=== PATIENT | female | born 1960 | race Caucasian/White ===

== ENCOUNTER 2022-12-17 22:04 | Emergency (ER) | payer MEDICARE, SELFPAY ==
[2022-12-17 22:10] VITALS: BP 155/93; PULSE 99; RESP 22; TEMP 35.7; O2SAT 97
--- NOTE | 2022-12-17 22:48 | CRLHL7_ITS ---
For Patients: As a result of the Century Cures Act, medical imaging exams and procedure reports are released immediately into your electronic medical record. You may view this report before your referring provider. If you have questions, please contact your health care provider. INDICATION: Severe headache.. TECHNIQUE: CT head without contrast. COMPARISON: None. FINDINGS: CSF spaces: Mild prominence of the lateral ventricles and 3rd ventricle. Brain parenchyma and extra-axial spaces: The carmona-white differentiation is normal. No sign of mass, hemorrhage, or midline shift. No extra-axial fluid collection. Skull base and calvarium: Small right sphenoid sinus air-fluid level. The mastoid air cells are clear. The visualized orbits are grossly unremarkable. No skull fractures. Degenerative changes of the temporomandibular joints. IMPRESSION: No acute intracranial hemorrhage, mass effect, or midline shift. Mild prominence of the lateral ventricles and 3rd ventricle. This is of uncertain chronicity. If there is concern for developing hydrocephalus, recommend MRI. No evidence for transependymal CSF flow. Small right sphenoid sinus air-fluid level. Recommend correlation for symptoms of acute sinusitis. Please note that all CT scans at this facility use dose modulation, iterative reconstruction, and/or weight-based dosing when appropriate to reduce radiation dose to as low as reasonably achievable. Dictated by Travis Motley MD @ 12/18/2022 12:05:11 AM (Electronically Signed)
[2022-12-17 23:59] VITALS: BP 141/80; PULSE 65; RESP 18; O2SAT 96
--- NOTE | 2022-12-19 02:53 | ED.HA ---
HPI - Headache General Chief Complaint: Headache/Migraine Stated Complaint: High BP, Headache Time Seen by Provider: 12/17/22 22:32 History of Present Illness HPI Narrative: 62-year-old woman presenting to the emergency department clearly stressed and upset about degree of headache she had experienced earlier today. Two to history of neuropathy had not slept well last night. Was still up at 5:00 a.m.. Had abrupt onset of frontal headache that she demonstrate circling around her face somehow. Very intense. Ultimately was able to fall asleep waking around 7 to 's concern. Admonished her that she should have contacted/alerted him and been evaluated if she would experience something like that again. She mentions that has had higher blood pressures lately apparently in triage, I ask a number of times during our interview and this is somewhat dismissed. 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 Having gone through most of the day now comfortable with minimal discomfort at this point. Was recommended then ultimately during call in to triage who told her that she needs to present immediately to the emergency department. This has frightened her good deal. She is in tears discussing this. Prior to this was not experiencing facial pain pressure in particular. No weakness or new neuropathy/paresthesia. Takes gabapentin higher dosed at night for neuropathy. Related Data Home Medications Medication Instructions Recorded Confirmed amlodipine 10 mg tablet 10 mg PO DAILY 12/17/22 12/17/22 dextroamphetamine-amphetamine 10 1 tab PO DAILY 12/17/22 12/17/22 mg tablet duloxetine 30 mg capsule,delayed 90 mg PO QPM 12/17/22 12/17/22 release empagliflozin 10 mg tablet 10 mg PO DAILY 12/17/22 12/17/22 (Jardiance) famotidine 20 mg tablet 20 mg PO BID 12/17/22 12/17/22 fluticasone propionate 50 1 spray intranasal BID 12/17/22 12/17/22 mcg/actuation nasal spray,suspension gabapentin 400 mg capsule 400 mg PO 12/17/22 insulin glargine 100 unit/mL (3 14 unit subcut QPM 12/17/22 12/17/22 mL) subcutaneous pen (Lantus Solostar U-100 Insulin) losartan 25 mg tablet 25 mg PO DAILY 12/17/22 12/17/22 metformin 500 mg tablet 500 mg PO BID 12/17/22 12/17/22 modafinil 200 mg tablet 400 mg PO QAM PRN 12/17/22 12/17/22 Allergies Allergy/AdvReac Type Severity Reaction Status Date / Time doxycycline Allergy Mild Verified 12/17/22 22:23 losartan Allergy Mild Verified 12/17/22 22:23 Penicillins Allergy Mild Rash Verified 12/17/22 22:23 lisinopril AdvReac Mild Cough Verified 12/17/22 22:23 morphine AdvReac Mild Nausea Verified 12/17/22 22:23 Review of Systems Status of ROS: Reports: 6 or more systems reviewed and unremarkable except as noted in History and below [facility] Social History Smoking Status: Never smoker Do you use any of these nicotine containing products: None Second hand tobacco smoke exposure: No How often do you have a drink containing alcohol: never AUDIT-C Alcohol total score: 0 Non-prescribed substance use: denies use Exam Narrative: Exam Narrative: Pleasant. NAD. As noted tearful. Anxious. Breathing easily. Cranial nerves 2-12 intact. Head is atraumatic. Oropharynx is moist and unremarkable. No facial swelling erythema or tenderness. Neck is supple nontender. Lungs appear to be clear. Heart is in an elevated rate with normal rhythm. She is moving all extremities without difficulty. Well perfused. Const: Documenting provider has reviewed patient's vital signs: yes Course Vital Signs Vital signs: Initial Vital Signs Temperature 96.3 F L 12/17/22 22:10 Temperature Source Temporal Artery Scan 12/17/22 22:10 Pulse Rate 99 12/17/22 22:10 Pulse Rhythm 12/17/22 22:10 Pulse Strength 3+ Normal 12/17/22 22:10 Respiratory Rate 22 12/17/22 22:10 Blood Pressure 155/93 H 12/17/22 22:10 Blood Pressure Mean 113 12/17/22 22:10 Blood Pressure Position Sitting 12/17/22 22:10 Pulse Oximetry 97 12/17/22 22:10 Oxygen Delivery Method 12/17/22 22:10 Vital Signs Temperature 96.3 F L 12/17/22 22:10 Pulse Rate 99 12/17/22 22:10 Respiratory Rate 22 12/17/22 22:10 Blood Pressure 155/93 H 12/17/22 22:10 Pulse Oximetry 97 12/17/22 22:10 Oxygen Delivery Method 12/17/22 22:10 Temperature 96.3 F L 12/17/22 22:10 Pulse Rate 65 12/17/22 23:59 Respiratory Rate 18 12/17/22 23:59 Blood Pressure 141/80 H 12/17/22 23:59 Pulse Oximetry 96 12/17/22 23:59 Oxygen Delivery Method 12/17/22 23:59 MDM - Headache MDM Narrative Medical decision making narrative: Blood pressure is indeed mildly elevated here and if this is regular trend would require further treatment. Is rather asymptomatic at this point. This was transient facial pain/headache seems to have faded. Certainly could have been an aneurysmal leak perhaps at worst. I do not appreciate any stroke/ischemic cerebrovascular symptoms here. Possibly sinus related? I think at this point Suzanne is concerned enough that imaging is reasonable looking for any evidence frankly of head bleed. I do not think need to do any labs at this point. Noncontrast head CT reviewed by me does seem to show some prominent ventricles. I do not see any active bleeding. Radiology over-read IMPRESSION: No acute intracranial hemorrhage, mass effect, or midline shift. Mild prominence of the lateral ventricles and 3rd ventricle. This is of uncertain chronicity. If there is concern for developing hydrocephalus, recommend MRI. No evidence for transependymal CSF flow. Small right sphenoid sinus air-fluid level. Recommend correlation for symptoms of acute sinusitis. As noted does not have persistent pain in the face. This time I would not treat these findings. Suzanne confirms that has a history of somewhat prominent ventricles. Reviewing today and these images Suzanne appears relieved. See patient discharge plan Discharge Plan Discharge Clinical Impression: Headache Patient Disposition: Home w/ Parent or Adult Condition: Improved Additional Instructions: I think this was a lot of stress for you today. It does not appear that you had a stroke. Your blood pressure has improved. The only major thing we found in your head was some fullness of the ventricles of your brain, which you're telling me is nothing new. I hope you can sleep well tonight. Prescriptions: No Action amlodipine 10 mg tablet 10 mg PO DAILY metformin 500 mg tablet 500 mg PO BID dextroamphetamine-amphetamine 10 mg tablet 1 tab PO DAILY gabapentin 400 mg capsule 400 mg PO famotidine 20 mg tablet 20 mg PO BID modafinil 200 mg tablet 400 mg PO QAM PRN losartan 25 mg tablet 25 mg PO DAILY fluticasone propionate 50 mcg/actuation spray,suspension 1 spray INTRANASAL BID duloxetine 30 mg capsule,delayed release(DR/EC) 90 mg PO QPM insulin glargine [Lantus Solostar U-100 Insulin] 100 unit/mL (3 mL) insulin pen 14 unit subcut QPM Jardiance 10 mg tablet 10 mg PO DAILY Follow Up/Referrals: Provider,Not a Local [Primary Care Provider] - Stand Alone Forms: [facility] Info Instructions
== END 2022-12-18 00:57 | disposition home or self-care (01) ==
PROVIDERS: Emergency Provider Family Medicine
DX: R51.9 Headache, unspecified (principal)
CPT/HCPCS: 70450; 99284

== ENCOUNTER 2023-01-29 13:45 | Outpatient (CLI) | payer MEDICARE, SELFPAY ==
--- NOTE | 2023-01-29 14:00 | CRLHL7_ITS ---
For Patients: As a result of the Century Cures Act, medical imaging exams and procedure reports are released immediately into your electronic medical record. You may view this report before your referring provider. If you have questions, please contact your health care provider. 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 98 cc Isovue 370 intravenous contrast. Please note that all CT scans at this facility use dose modulation, iterative reconstruction, and/or weight-based dosing when appropriate to reduce radiation dose to as low as reasonably achievable. Comparison: 03/31/2020 Findings: Mild dependent atelectasis noted in both lower lobes. There is no free intraperitoneal air. Postoperative changes of bilateral mastectomy. Stable 1 cm cyst within the anterior liver. No suspicious intrahepatic lesion. The spleen is normal. Similar appearance of the adrenal glands. Stable simple cyst lower pole left kidney. Right kidney normal. No hydronephrosis. Pancreas normal. Gallbladder absent. Duodenal diverticulum again noted. No hiatal hernia. Bladder unremarkable. Uterus absent. Colonic diverticulosis. No diverticulitis or free fluid. No abscess or obstruction. Small bowel unremarkable. No abdominal wall hernia. No adnexal mass. No adenopathy. Impression: Colonic diverticulosis without diverticulitis. No bowel obstruction or inflammatory change. No evidence of metastatic disease. Please note that all CT scans at this facility use dose modulation, iterative reconstruction, and/or weight-based dosing when appropriate to reduce radiation dose to as low as reasonably achievable. Dictated by Noe Izaguirre MD @ 01/30/2023 10:34:58 AM (Electronically Signed)
[2023-01-29 14:39] LABS: Creatinine* 1.5 mg/dL (0.5-1.5); Estimated Glomerular Filt Rate 39 ml/min
== END 2023-01-29 13:46 | disposition home or self-care (01) ==
PROVIDERS: PCP Family Medicine; Visit Provider Internal Medicine Hematology & Oncology
DX: C50.411 Malignant neoplasm of upper-outer quadrant of right female breast (principal); R10.9 Unspecified abdominal pain
CPT/HCPCS: 36415; 74177; 82565; Q9967

== ENCOUNTER 2024-08-03 00:20 | Outpatient (CLI) | payer OTHER, SELFPAY | END 2024-08-03 00:21 | disposition home or self-care (01) | LOC: AMB 08-07 06:08 | PROVIDERS: PCP Family Medicine; Visit Provider Family Medicine | DX: R10.9 Unspecified abdominal pain (principal) | CPT/HCPCS: A0425; A0427 ==

== ENCOUNTER 2024-11-25 16:32 | Emergency (ER) | payer MEDICARE, SELFPAY ==
[2024-11-25 16:38] VITALS: BP 151/83; PULSE 112; RESP 20; TEMP 36.3; O2SAT 99; BMI 30.3
--- NOTE | 2024-11-25 17:10 | ED.GENADULT ---
HPI - General Adult General Chief complaint: Diabetic Related Problem Stated complaint: High BG = 585 Time Seen by Provider: 11/25/24 16:41 History of Present Illness HPI narrative: Patient had steroid injections in bilateral hips on Sunday. She since has had high blood sugars and was not given any advice on how to change insulin to help with this. 64-year-old woman presenting to the emergency department with concern of high blood sugar. On Sunday had bilateral hip injections with a steroid. Sunday morning walked blood sugars that were quite high but does not know what that number was at the moment. Was told to take an extra 15 units of Lantus which she took in the mid afternoon and then her usual 26 units of Lantus in the evening. Sunday morning blood sugars were in the 300s and dosed again her usual dosing of Lantus that day 26 units in evening. On Sunday, yesterday, did not record her blood sugars dosing usual Lantus and then this morning morning blood sugars were 178 but then this afternoon nearly 500. She is quite thirsty with a dry mouth and urinating a lot. She is just wondering what to do. No cough or cold symptoms. No fever. Also takes Jardiance daily. Was diagnosed with diabetes 4 years ago as a type 2 she says. Does not use regular insulin nor carb count nor have sliding scale; unfamiliar with all of this it appears Related Data Home Medications ?Medication ?Instructions ?Recorded ?Confirmed amlodipine 10 mg tablet 5 mg PO DAILY 12/17/22 11/25/24 dextroamphetamine-amphetamine 10 20 mg PO DAILY 12/17/22 11/25/24 mg tablet duloxetine 30 mg capsule,delayed 90 mg PO QPM 12/17/22 11/25/24 release empagliflozin 10 mg tablet 10 mg PO DAILY 12/17/22 11/25/24 (Jardiance) famotidine 20 mg tablet 20 mg PO BID 12/17/22 11/25/24 fluticasone propionate 50 1 spray intranasal BID 12/17/22 11/25/24 mcg/actuation nasal spray,suspension gabapentin 400 mg capsule 400 mg PO TID 12/17/22 11/25/24 insulin glargine 100 unit/mL (3 26 unit subcut QPM 12/17/22 11/25/24 mL) subcutaneous pen (Lantus Solostar U-100 Insulin) losartan 25 mg tablet 25 mg PO DAILY 12/17/22 10/02/24 modafinil 200 mg tablet 200 mg PO QAM PRN 12/17/22 11/25/24 spironolactone 25 mg tablet 25 mg PO DAILY 08/27/23 10/02/24 ascorbic acid (vitamin C) 500 mg mg PO 10/02/24 10/02/24 capsule cholecalciferol (vitamin D3) 10 10 mcg PO QDAY 10/02/24 10/02/24 mcg (400 unit) capsule loratadine 10 mg tablet (Claritin) 10 mg PO QDAY 10/02/24 10/02/24 multivitamin 1 tab PO QAM 10/02/24 10/02/24 zinc citrate 11 mg chewable tablet mg PO 10/02/24 10/02/24 Previous Rx's ?Medication ?Instructions ?Recorded azithromycin 250 mg tablet See Rx Instructions PO .COMPLEX #6 10/02/24 tabs Allergies Allergy/AdvReac Type Severity Reaction Status Date / Time doxycycline Allergy Mild Verified 10/02/24 16:03 losartan Allergy Mild Verified 10/02/24 16:03 Penicillins Allergy Mild Rash Verified 10/12/24 10:14 lisinopril AdvReac Mild Cough Verified 10/02/24 16:03 morphine AdvReac Mild Nausea Verified 10/02/24 16:03 Review of Systems Status of ROS: Reports: 6 or more systems reviewed and unremarkable except as noted in History and below [facility] Medical History Tick bite ?W57.XXXA - Bitten or stung by nonvenomous insect and other nonvenomous arthropods, initial encounter (ICD-10) Social History Smoking Status: Never smoker Do you use any of these nicotine containing products: None Second hand tobacco smoke exposure: No How often do you have a drink containing alcohol: never AUDIT-C Alcohol total score: 0 Non-prescribed substance use: denies use Exam Narrative: Exam Narrative: Pleasant. Does appear mildly anxious. Breathing easily. Lungs are clear. Heart in regular rhythm but tachycardic. Dry mouth. Abdomen is soft nontender. Extremities are well perfused without edema. Skin is good turgor. Const: Vital Signs, click to edit/add: Vital Signs - 24 hr 11/25/24 16:38 Temperature 97.3 F L Pulse Rate [Pulse Oximeter] 112 H Respiratory Rate 20 Blood Pressure [Ri ght Upper Arm] 151/83 H Pulse Oximetry 99 Oxygen Delivery Me thod Room Air Documenting provider has reviewed patient's vital signs: yes Course Vital Signs Vital signs: Initial Vital Signs Temperature 97.3 F L 11/25/24 16:38 Temperature Source Temporal Artery Scan 11/25/24 16:38 Pulse Rate 112 H 11/25/24 16:38 Respiratory Rate 20 11/25/24 16:38 Blood Pressure 151/83 H 11/25/24 16:38 Blood Pressure Mean 105 11/25/24 16:38 Pulse Oximetry 99 11/25/24 16:38 Oxygen Delivery Method Room Air 11/25/24 16:38 Vital Signs Temperature 97.3 F L 11/25/24 16:38 Pulse Rate 112 H 11/25/24 16:38 Respiratory Rate 20 11/25/24 16:38 Blood Pressure 151/83 H 11/25/24 16:38 Pulse Oximetry 99 11/25/24 16:38 Oxygen Delivery Method Room Air 11/25/24 16:38 Temperature 97.3 F L 11/25/24 16:38 Pulse Rate 112 H 11/25/24 16:38 Respiratory Rate 20 11/25/24 16:38 Blood Pressure 151/83 H 11/25/24 16:38 Pulse Oximetry 99 11/25/24 16:38 Oxygen Delivery Method Room Air 11/25/24 16:38 Medications Administered Medications: Discontinued Medications Generic Name Dose Route Start Last Admin Trade Name Freq PRN Reason Stop Dose Admin Sodium Chloride 1,000 mls @ 1,000 mls/hr 11/25/24 17:22 11/25/24 18:31 0.9 % Sodium Chloride 1000 Ml IV 11/25/24 18:21 Infused .Q1H ONE Infusion Sodium Chloride 1,000 mls @ 1,000 mls/hr 11/25/24 18:40 11/25/24 19:48 0.9 % Sodium Chloride 1000 Ml IV 11/25/24 19:39 Infused .Q1H ONE Infusion Insulin Human Regular 12 unit 11/25/24 17:52 11/25/24 18:00 Insulin Regular, Human 100 Unit/Ml Vial IVP 11/25/24 17:53 12 unit ONCE ONE Administration Medical Decision Making MDM Narrative Medical decision making narrative: I do not smell ketones. I do not think there is ketoacidosis here but will verify this in laboratory analysis. This appears to be iatrogenic uncontrolled hyperglycemia. Will test with regular insulin. Check labs looking for other electrolyte abnormalities. Surely dehydrated. Will offer IV hydration here. Look for evidence of infection. Given 12 units of regular insulin. Ultimately received 2 L normal saline. Labs show a urine with glucosuria as expected no evidence infection. No ketones. Mildly elevated white count. Reassuring VBGs. Corrected sodium 137 with a potassium of 4.5 Initial blood sugar of 618. It was elevated not unexpectedly at 3.3. BUN of 65, creatinine as prior at 1.5. Recheck blood sugar initially at an hour after insulin dosing at 235 and before departure 180. Generally appears improved. Stable vitals. Reports feeling better as well. Discussed concerns for outpatient management with our hospitalist. Delineated in discharge. See patient discharge plan for further discussion Recommendations are to take 10 units of your Lantus tonight as usual. Only 10 units. Tomorrow morning check your blood sugar fasting. Between 140 and 200, take 30 units of Lantus. If greater than 200, take 33 units of Lantus. If less than 140, take 27 units of Lantus For now and pending further consultation with your primary care provider, continue to take morning Lantus dosing. You might not have to do this increase in Lantus dosing for more than a few days yet. Medical Records Medical records reviewed: Yes I reviewed the patient's medical records Lab Data Lab results reviewed: Yes I reviewed the patient's lab results Labs: Lab Results 11/25/24 11/25/24 11/25/24 Range/Units 16:58 17:22 19:05 WBC 11.52 H (4.50-11.00) K/uL RBC 5.53 H (4.00-5.20) m/uL Hgb 14.7 (12.0-16.0) gm/dL Hct 46.1 (33.0-51.0) % MCV 83 (80-100) fL MCH 27 (26-34) pg MCHC 32 (32-36) gm/dL RDW Coeff of Tsering 14.3 (11.5-15.5) % Plt Count 296 (140-440) K/uL Neut % (Auto) 74.2 H (42.0-72.0) % Lymph % (Auto) 12.8 L (20-44) % Barton % (Auto) 12.1 H (0.0-11.0) % Eos % (Auto) 0.2 (0.0-7.0) % Baso % (Auto) 0.1 (0.0-3.0) % Neut # (Auto) 8.50 H (1.7-7.0) K/uL Lymph # (Auto) 1.50 (0.90-2.90) K/uL Barton # (Auto) 1.40 H (0.00-0.90) K/UL Eos # (Auto) 0.00 (0.00-0.50) K/uL Baso # (Auto) 0.00 (0.00-0.30) K/uL Abs Immat Gran (auto) 0.10 (0.00-0.30) K/uL Imm/Tot Granulo (auto) 0.6 % VBG pH 7.391 (7.32-7.43) VBG pCO2 37 L (40-50) mmHG VBG pO2 42.3 (25-47) mmHG VBG HCO3 22 (21-28) mmol/L Sodium 129 L (135-149) mmol/L Potassium 4.5 (3.6-5.1) mmol/L Chloride 96 (96-114) mmol/L Carbon Dioxide 19 L (20-32) mmol/L Anion Gap 14 (7-15) mEq/L BUN 65 H (7-30) mg/dL Creatinine 1.5 (0.5-1.5) mg/dL Estimated Creat Clear 34.09 Estimated GFR 39 ml/min Glucose 618 H* (60-115) mg/dL Lactate 3.3 H (0.5-1.9) mmol/L Calcium 8.8 (8.4-10.6) mg/dL Urine Color Yellow (Yellow) Urine Appearance Clear (Clear) Urine pH 6.0 (5.0-8.5) Ur Specific Perryman 1.010 (1.000-1.030) Urine Protein Negative (Negative) Urine Glucose (UA) 2+ A (Negative) Urine Ketones Negative (Negative) Urine Blood Negative (Negative) Urine Nitrite Negative (Negative) Urine Bilirubin Negative (Negative) Urine Urobilinogen 0.2 (0.2-1.0) Ur Leukocyte Esterase Negative (Negative) Urine RBC 0-2 (0-2) Urine WBC 0-2 (0-5) Ur Squamous Epith Cells Few (None-Few) Urine Bacteria Few A (None) Urine Yeast Few A (None) POC Glucose 235 H (60-115) mg/dl 11/25/24 Range/Units 19:40 WBC (4.50-11.00) K/uL RBC (4.00-5.20) m/uL Hgb (12.0-16.0) gm/dL Hct (33.0-51.0) % MCV (80-100) fL MCH (26-34) pg MCHC (32-36) gm/dL RDW Coeff of Tsering (11.5-15.5) % Plt Count (140-440) K/uL Neut % (Auto) (42.0-72.0) % Lymph % (Auto) (20-44) % Barton % (Auto) (0.0-11.0) % Eos % (Auto) (0.0-7.0) % Baso % (Auto) (0.0-3.0) % Neut # (Auto) (1.7-7.0) K/uL Lymph # (Auto) (0.90-2.90) K/uL Barton # (Auto) (0.00-0.90) K/UL Eos # (Auto) (0.00-0.50) K/uL Baso # (Auto) (0.00-0.30) K/uL Abs Immat Gran (auto) (0.00-0.30) K/uL Imm/Tot Granulo (auto) % VBG pH (7.32-7.43) VBG pCO2 (40-50) mmHG VBG pO2 (25-47) mmHG VBG HCO3 (21-28) mmol/L Sodium (135-149) mmol/L Potassium (3.6-5.1) mmol/L Chloride (96-114) mmol/L Carbon Dioxide (20-32) mmol/L Anion Gap (7-15) mEq/L BUN (7-30) mg/dL Creatinine (0.5-1.5) mg/dL Estimated Creat Clear Estimated GFR ml/min Glucose (60-115) mg/dL Lactate (0.5-1.9) mmol/L Calcium (8.4-10.6) mg/dL Urine Color (Yellow) Urine Appearance (Clear) Urine pH (5.0-8.5) Ur Specific Perryman (1.000-1.030) Urine Protein (Negative) Urine Glucose (UA) (Negative) Urine Ketones (Negative) Urine Blood (Negative) Urine Nitrite (Negative) Urine Bilirubin (Negative) Urine Urobilinogen (0.2-1.0) Ur Leukocyte Esterase (Negative) Urine RBC (0-2) Urine WBC (0-5) Ur Squamous Epith Cells (None-Few) Urine Bacteria (None) Urine Yeast (None) POC Glucose 180 H (60-115) mg/dl Discharge Plan Discharge Clinical Impression: Hyperglycemia, Dehydration Patient Disposition: Home w/ Parent or Adult Condition: Improved Additional Instructions: Recommendations are to take 10 units of your Lantus tonight as usual. Only 10 units. Tomorrow morning check your blood sugar fasting. Between 140 and 200, take 30 units of Lantus. If greater than 200, take 33 units of Lantus. If less than 140, take 27 units of Lantus For now and pending further consultation with your primary care provider, continue to take morning Lantus dosing. You might not have to do this increase in Lantus dosing for more than a few days yet. Prescriptions: No Action spironolactone 25 mg tablet 25 mg PO DAILY loratadine [Claritin] 10 mg tablet 10 mg PO QDAY cholecalciferol (vitamin D3) 10 mcg (400 unit) capsule 10 mcg PO QDAY zinc citrate 11 mg tablet,chewable PO ascorbic acid (vitamin C) 500 mg capsule PO multivitamin Tablet 1 tab PO QAM azithromycin 250 mg tablet See Rx Instructions PO .COMPLEX Qty: 6 0RF Rx Instructions: For 250 mg dose pack: take 500 mg today (day 1), then 250 mg for 4 days (days 2-5) PO amlodipine 10 mg tablet 5 mg PO DAILY dextroamphetamine-amphetamine 10 mg tablet 20 mg PO DAILY gabapentin 400 mg capsule 400 mg PO TID famotidine 20 mg tablet 20 mg PO BID modafinil 200 mg tablet 200 mg PO QAM PRN losartan 25 mg tablet 25 mg PO DAILY fluticasone propionate 50 mcg/actuation spray,suspension 1 spray INTRANASAL BID duloxetine 30 mg capsule,delayed release(DR/EC) 90 mg PO QPM insulin glargine [Lantus Solostar U-100 Insulin] 100 unit/mL (3 mL) insulin pen 26 unit subcut QPM Jardiance 10 mg tablet 10 mg PO DAILY Follow Up/Referrals: Audra Liz MD [Referring] - Stand Alone [facility]
--- OUTSIDE RECORDS SUMMARY | 2024-11-25 17:29 | XMS_ITS | Encounter Summary ---
Author Organization [facility] Address [address] [place] [address] Care Team Providers Care Asset Protection Manager Name Role Phone Audra Liz MD Primary Care Provider + Perry Palacios MD Unavailable [phone] Perry Palacios MD Unavailable [phone] Encounter Details Date Type Department Care Team (Late st Contact Info) Description 11/17/2015 Telephone [facility] [address], [address] [place] [address] Angelia Garcia RN Social History Tobacco Use Types Packs/Day Years Used Date Smoking Tobacco: Never Alcohol Use Standard Drinks/Week Comments No 0 (1 standard drink = 0.6 oz pur e alcohol) Comments No Sex and Gender Information Value Date Recorded Sex Assigned at Not on file Legal Sex Female 4:21 AM [employer] Gender Identity Not on file Sexual Orientation Not on file documented as of this encounter Plan of Treatment Not on file documented as of this encounter Visit Diagnoses Not on filedocumented in this encounter Care Teams Asset Protection Manager Relationship Specialty Start Date End Date Audra Liz MD [facility] [address] [place] [address] PCP - General 03/08/13 Perry Palacios MD [address] [id number] [place] [id number] Cardiovascular Disease 02/15/23 [place] [id number] [id number] Cardiovascular Disease 02/23/23 documented as of this encounter
--- OUTSIDE RECORDS SUMMARY | 2024-11-25 17:29 | XMS_ITS | Encounter Summary ---
Author Organization [place] Address [address] [facility] [place] [address] Care Team Providers Care Hull Drafter Name Role Phone Audra Liz MD Primary Care Provider + Perry Palacios MD Unavailable [phone] Perry Palacios MD Unavailable [phone] Encounter Details Date Type Department Care Team (Late st Contact Info) Description 11/16/2015 Telephone [facility] [address] [facility], [address] [place] [address] Angelia Garcia RN Social History Tobacco Use Types Packs/Day Years Used Date Smoking Tobacco: Never Alcohol Use Standard Drinks/Week Comments No 0 (1 standard drink = 0.6 oz pur e alcohol) Comments No Sex and Gender Information Value Date Recorded Sex Assigned at Not on file Legal Sex Female 4:21 AM OUTPATIENT THERAPIST Gender Identity Not on file Sexual Orientation Not on file documented as of this encounter Plan of Treatment Not on file documented as of this encounter Visit Diagnoses Not on filedocumented in this encounter Care Teams Hull Drafter Relationship Specialty Start Date End Date Audra Liz MD [facility] [address] [place] [address] PCP - General 03/08/13 Perry Palacios MD [address] [id number] [place] [address] Cardiovascular Disease 02/15/23 [place] [address] [id number] Cardiovascular Disease 02/23/23 documented as of this encounter
--- OUTSIDE RECORDS SUMMARY | 2024-11-25 17:29 | XMS_ITS ---
Author Organization [facility] ([facility]) Address [address] [place] [address] Care Team Providers Care Flower Picker Name Role Phone Unavailable Unavailable Unavailable Allergies, Adverse Reactions, Alerts This patient has no known allergies or adverse reactions. Problems This patient has no known problems.
[2024-11-25 17:30] LABS: Basophils Percent Auto 0.1 % (0.0-3.0); Eosinophils Percent Auto 0.2 % (0.0-7.0); Hematocrit 46.1 % (33.0-51.0); Hemoglobin* 14.7 gm/dL (12.0-16.0); Immature Granulocytes Pct Auto 0.6 %; Lymphocytes Percent Auto 12.8 % (20-44); Mean Corpuscular HGB Conc 32 gm/dL (32-36); Mean Corpuscular Hemoglobin 27 pg (26-34); Mean Corpuscular Volume 83 fL (80-100); Monocytes Percent Auto 12.1 % (0.0-11.0); Neutrophils Percent Auto 74.2 % (42.0-72.0); Platelet Count* 296 K/uL (140-440); RDW Coefficient of Variation % 14.3 % (11.5-15.5); Red Blood Count 5.53 m/uL (4.00-5.20); White Blood Count* 11.52 K/uL (4.50-11.00)
--- OUTSIDE RECORDS SUMMARY | 2024-11-25 17:30 | XMS_ITS | Clinical Summary ---
Author Organization [place] Address [address] [place] [address] Care Team Providers Care Doll Eye Setter Name Role Phone Audra Liz MD Primary Care Provider + Perry Palacios MD Unavailable [phone] Perry Palacios MD Unavailable [phone] Allergies Active Allergy Reactions Criticality Noted Date Comments Doxycycline Hives,Rash Low 03/20/2013 Morphine Sulfate Nausea and Vomiting 03/20/2013 Penicillins Rash Low 03/20/2013 unknown Seasonal Allergies Other (See Comments) 017 Nasal congestion Medications VITAMIN D, CHOLECALCIFEROL , PO Take 1,000 Units by mouth daily. Active loratadine (CLARITIN) 10 MG tablet Take 10 mg by mouth daily Active omeprazole (PRILOSEC) 20 MG CR capsule Take 20 mg by mouth daily Active LORazepam (ATIVAN) 0.5 MG tablet Take 0.5 mg by mouth nightly as needed for anxiety Active amphetamine-dex troamphetamine (ADDERALL XR) 10 MG per 24 hr capsule Take 10 mg by mouth 1 to 2 times daily Active OXYCODONE HCL PO Take 5 mg by mouth every 12 hours Active exemestane (AROMASIN) 25 MG tablet Take 25 mg by mouth daily Active HYDROcodone-pradip taminophen (NORCO) 5-325 MG per tabletIndicatio ns:Malignant neoplasm of upper-outer quadrant of right breast in female, estrogen receptor positive (H) Take 1-2 tablets by mouth every 4 hours as needed for other (Moderate to Severe Pain) 10 tablet 09/14/2017 Active Active Problems Problem Noted Date Diagnosed Date Cholecystitis 01/11/2017 Acute cholecystitis 01/11/2017 Breast cancer, right 12/03/2015 Infiltrating ductal carcinoma of breast 11/18/19 16 Overview (02/17/2016): Overview: Diagnosis 11/2015 Gastritis 03/31/2015 Overview (02/17/2016): Overview: Erosive seen on EGD 03/2015 Urinary dysfunction 03/27/2013 Arnold-Chiari malformation 09/20/2011 Overview (02/17/2016): Overview: Also abnormal flow of CSF. Review by Neurology; nonsurgical or symptom causing Environmental allergies 08/11/2010 Onychomycosis 08/11/2010 Vitamin D deficiency 08/11/2010 Bilateral sensorineural hearing loss 09/27/2007 Overview (02/17/2016): Overview: Sees audiology. Have bilateral hearing aids Family History Medical History Relation Comments Diabetes Brother 1 Hypertension Brother 2 Coronary Artery Disease Father Hypertension Maternal Grandmother Coronary Artery Disease Mother Hypertension Mother Other Cancer Sister Relation Status Comments Brother 1 Brother 2 Father Maternal Grandmother Mother Sister Social History Tobacco Use Types Packs/Day Years Used Date Smoking Tobacco: Never Smokeless Tobacco: Never Tobacco Cessation:Counseling Given: Yes Alcohol Use Standard Drinks/Week Comments No 0 (1 standard drink = 0.6 oz pur e alcohol) Adolescent Education Answer Date Record ed Getting School Help Needed Not on file 07/17 Comments No Sex and Gender Information Value Date Recorded Sex Assigned at Not on file Legal Sex Female 4:21 AM AGRICULTURAL SCIENCES PROFESSOR Gender Identity Not on file Sexual Orientation Not on file Last Filed Vital Signs Vital Sign Reading Time Taken Comments Blood Pressure 149/94 09/14/2017 8:08 AM AGRICULTURAL SCIENCES PROFESSOR Pulse 66 09/14/2017 6:55 AM AGRICULTURAL SCIENCES PROFESSOR Temperature 36.1 C (96.9 F) 09/14/2017 8:00 AM AGRICULTURAL SCIENCES PROFESSOR Respiratory Rate 16 09/14/2017 8:08 AM AGRICULTURAL SCIENCES PROFESSOR Oxygen Saturation 97% 09/14/2017 8:08 AM AGRICULTURAL SCIENCES PROFESSOR Inhaled Oxygen Concentration - - Weight 95.3 kg (210 lb) 09/14/2017 6:55 AM AGRICULTURAL SCIENCES PROFESSOR Height 160 cm (5' 3) 09/14/2017 6:55 AM AGRICULTURAL SCIENCES PROFESSOR Body Mass Index 37.2 09/14/2017 6:55 AM AGRICULTURAL SCIENCES PROFESSOR Plan of Treatment Not on file Medical Devices Implanted Type Area Peoplesoft Programmer Device Identifier Shelf Expiration Date Model / Serial / Lot Mesh Ventrio St Hernia 3.1x4.7 Oval Sm [id number] Implanted:Qty : 1 on 07/04/2017 by Jostin Ardon MD at [facility] Mesh N/A: Umbilical [employer]-DAVOL 02/25/2019 [id number] / / [id number] Mesh Sling Obtryx-Halo Implanted:Qty : 1 on 03/26/2013 by Herb Mcmillan MD at [facility] N/A: Vagina [employer] [id number] / / [id number] Explanted Type Area Peoplesoft Programmer Device Identifier Shelf Expiration Date Model / Serial / Lot Cath Port Mri Powerport 8fr Sl [id number] Implanted:Qty: 1 on 12/24/2015 by Jostin Ardon MD at [facility] Explanted:Qty: 1 on 09/14/2017 by Jostin Ardon MD at [facility] Left: Neck CR [employer] 09/27/2017 [id number] / / [id number] Description:port implanted i n left subclavian vein,discarded by policy to black box Insurance NONE (Work) [id number] [place] [id number] [facility] MEDICARE ADVANTAGE [place] [id number] Advance Directives For more information, please contact: [phone] * Full Code (Latest Code Status on File) Date Activated Date Inactivated Comments 01/11/2017 6:11 PM 01/12/2017 4:08 PM * Full Code Date Activated Date Inactivated Comments 01/11/2017 12:33 AM 01/11/2017 6:11 PM * Full Code Date Activated Date Inactivated Comments 12/03/2015 3:23 PM 12/04/2015 3:20 PM * Full Code Date Activated Date Inactivated Comments 03/27/2013 5:03 AM 03/27/2013 1:46 PM Care Teams Doll Eye Setter Relationship Specialty Start Date End Date Audra Liz MD [facility] [id number] [place] [address] PCP - General 03/08/13 Perry Palacios MD [address] [facility] [address] [place] [address] Cardiovascular Disease 02/15/23 Perry Palacios MD [id number] [place] [address] [address] [place], [place] [address] Cardiovascular Disease 02/23/23
--- OUTSIDE RECORDS SUMMARY | 2024-11-25 17:30 | XMS_ITS ---
Author Organization [place] Address [address] [place] [address] Care Team Providers Care Clinical Biochemist Name Role Phone Audra Liz MD Primary Care Provider + Perry Palacios MD Unavailable [phone] Perry Palacios MD Unavailable [phone] Active Problems Problem Noted Date Diagnosed Date [...] Overview: Sees audiology. Have bilateral hearing aids Current Oncology Plans No current plan information found. Past Plans BLOOD PRODUCT 2 Plan Name Start Date Discontinue Date Treatment Medications Discontinue Reason Plan Provider OP RBC ADULT ONE TIME TRANSFUSION 03/12/2016 03/12/2016 No medications scheduled. Therapy completed at an outside facility - Radiation Treatments * No radiation treatments are documented for this patient in [facility]. Treatments may have been administered in another system.
--- OUTSIDE RECORDS SUMMARY | 2024-11-25 17:30 | XMS_ITS | Clinical Summary ---
Author Organization [facility] Address [facility] [place] [address] Care Team Providers Care [employer] Name Role Phone Gisela Sims RN, BSN Unavailable [phone] Brooks Monzon MD Primary Care Provider Allergies Active Allergy Reactions Criticality Noted Date Comments Doxycycline Hives,Rash Low 12/10/2009 Lisinopril Cough Low 03/25/2020 Losartan Behavioral Disturbances Low 06/10/2020 Made her chemo brain worse Morphine Nausea And Vomiting Unknown 12/10/2009 Medications cholecalciferol (VITAMIN D) 1,000 unit capsule Take 1 capsule by mouth once daily. 0 011 Active loratadine-pseu doephedrine, 10-240 mg, 24 hr (CLARITIN-D 24 HOUR) 10-240 mg per tablet Take 1 tablet by mouth once daily. 0 014 Active cyanocobalamin (VITAMIN B12) 100 mcg tabletIndicatio ns:Multiple joint pain Take 1 tablet by mouth once daily. 1 tablet 019 Active multivitamin chew Chew by mouth once daily. 0 022 Active ascorbic acid, vitamin C, 500 mg cap Take by mouth. 0 022 Active zinc 50 mg tablet Take 1 Tablet (50 mg) by mouth once daily. 0 022 Active famotidine (PEPCID) 20 mg tabletIndicatio ns:Gastroesopha geal reflux disease without esophagitis TAKE 1 TABLET(20 MG) BY MOUTH IN THE MORNING AND IN THE EVENING 180 Tablet 3 023 Active empagliflozin (Jardiance) 10 mg tabletIndicatio ns:Diabetic nephropathy associated with type 2 diabetes mellitus (HC) Take 1 Tablet (10 mg) by mouth once daily. 90 Tablet 3 024 Active amLODIPine (NORVASC) 10 mg tabletIndicatio ns:HTN (hypertension) Take 1 Tablet (10 mg) by mouth once daily. 90 Tablet 3 024 Active oxybutynin XL (DITROPAN XL) 5 mg CR tabletIndicatio ns:OAB (overactive bladder) Take 1 Tablet (5 mg) by mouth once daily. 90 Tablet 3 024 Active modafiniL (PROVIGIL) 200 mg tabletIndicatio ns:Sleep apnea, unspecified type TAKE 1 TABLET BY MOUTH 2 TIMES DAILY 180 Tablet 1 024 Active fluticasone (50 mcg per actuation) nasal solution (FLONASE) Inhale 1 [place] into affected nostril(s) once daily if needed for Rhinitis. Active gabapentin (NEURONTIN) 400 mg capsule Take by mouth four times daily. 800mg AM, 400mg afternoon, 400mg evening, 800mg bedtime Active oxyCODONE-aceta minophen (Percocet) 5-325 mg per tablet Take 1 Tablet by mouth 2 times daily if needed for Pain. Max acetaminophen dose: 4000mg in 24 hrs. Active hydroCHLOROthia zide 25 mg tablet Take 25 mg by mouth once daily. Active Lantus Solostar U-100 Insulin 100 unit/mL (3 mL) penIndications: Type 2 diabetes mellitus without complication, with long-term current use of insulin (HC) INJECT 21 UNITS UNDER THE SKIN BEFORE BEDTIME 30 mL 3 024 Active DULoxetine (CYMBALTA) 30 mg Delayed-release capsuleIndicati ons:Peripheral sensory neuropathy TAKE 3 CAPSULES BY MOUTH EVERY EVENING 270 Capsule 024 Active pen needle (bd insulin pen needle uf mini) 31 gauge x 3/16 (disposable insulin pen needle)Indicati ons:Controlled type 2 diabetes mellitus without complication, without long-term current use of insulin (HC) USE TO INJECT INSULIN SUBCUTANEOUS DIRECTED 100 Each 3 024 Active albuterol-iprat ropium (DUONEB) (2.5-0.5 mg) in 3 mL NEBULIZATION solutionIndicat ions:Bronchitis Inhale 3 mL via a nebulizer 4 times daily if needed for Shortness Of Breath or Wheezing. 180 mL 3 025 Active NebulizerIndica tions:Bronchiti s Every 4 hours as needed 1 Each 025 Active nebulizer accessories kitIndications: Bronchitis For home use. Length of need: 99 1 Kit 025 Active predniSONE (DELTASONE) 50 mg tab tabletIndicatio ns:Bronchitis One po QAM as needed symptoms. 10 Tablet 025 Active dextroamphetami ne-amphetamine (AdderalL) 10 mg tabletIndicatio ns:Upper airway resistance syndrome Take 1 Tablet (10 mg) by mouth two times daily. 60 Tablet 025 Active spironolactone (ALDACTONE) 25 mg tabletIndicatio ns:HTN (hypertension) TAKE 1 TABLET(25 MG) BY MOUTH EVERY MORNING 90 Tablet 025 Active spironolactone (ALDACTONE) 25 mg tabletIndicatio ns:HTN (hypertension) TAKE 1 TABLET(25 MG) BY MOUTH EVERY MORNING 90 Tablet 1 024 2024 Discontinued dextroamphetami ne-amphetamine (AdderalL) 10 mg tabletIndicatio ns:Upper airway resistance syndrome Take 1 Tablet (10 mg) by mouth two times daily. 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 Completely disabled since 2018. Hypertension 05/10/2022 Diabetes mellitus, type 2 06/10/2020 Routine adult health maintenance 05/27/2019 Overview (05/27/2019): Colonoscopy 05/2019 diverticulosis, repeat in 10 years CKD (chronic kidney disease) stage 3, GFR 30-59 ml/min 12/16/2018 Peripheral sensory neuropathy 03/11/2018 Overview (08/03/2024): Chemotherapy induced. EMG 03/2018 showed mild bilateral lower extremity. Sensory more so than motor. Axonal Upper airway resistance syndrome 07/26/2017 Overview (10/18/2017): 2014 last sleep study Chiari malformation 09/20/2011 Overview (02/15/2015): Also abnormal flow of CSF. Review by Neurology; nonsurgical or symptom causing Environmental allergies 08/11/2010 Sensorineural hearing loss, bilateral 09/27/2007 Overview (10/24/2012): Sees audiology. Have bilateral hearing aids Resolved Problems Problem Noted Date Diagnosed Date Resolved Date Type 2 diabetes mellitus wit h diabetic nephropathy, without long-term current use of insulin 10/17/2024 11/20/2024 Acute hepatitis 08/03/2024 11/20/2024 RLQ abdominal pain 08/03/2024 Type 2 diabetes mellitus wit h diabetic nephropathy, unspecified whether custodial insulin use 11/29/2023 01/23/2024 Stage 3b chronic kidney disease 09/27/2023 11/26/2023 Arnold-Chiari malformation 01/19/2022 0 01/23/2024 Uncontrolled type 2 diabetes mellitus with hyperglycemia 01/19/2022 01/23/2024 Infiltrating ductal carcinoma of right breast 11/18/19 16 08/03/2024 Overview (11/18/2015): Diagnosis 11/2015 Gastritis 03/31/2015 08/03/2024 Overview (03/31/2015): Erosive seen on EGD 03/2015 Onychomycosis 08/11/2010 08/03/2024 Vitamin D deficiency 08/11/2010 024 Encounters Date Type Department Care Team Description 11/25/2024 Nurse Triage [address] [address] Brooks Monzon MD High Blood Sugar 11/11/[address] [address] Brooks Monzon MD Refill Request (Spironolactone) 11/03/[address] [address] Brooks Monzon MD Form (Disability paperwork) 10/29/[address] [address] Brooks Monzon MD 10/27/[address] [address] Brooks Monzon MD Refill Request (dextroamphetamine-am phetamine (AdderalL) 10 mg tablet) 10/17/2024 1:45 PM PROCEDURES NURSE Office Visit [address] [address] Brooks Monzon MD Pneumonia (Pt wants to follow up on pneumonia); Eye Problem (Pt presents with red eye. She states that she has had this for about a month. ); Lump (Pt has a bump on the back of her head sustained from a fall. ) 10/17/2024 Travel 09/02/[address] [address] Audra Liz MD Refill Request (Bd Insulin Pen Needle Uf Mini) 09/01/[address] [place] [address] Brooks Monzon MD Refill Request (Duloxetine) from Last 3 Months Immunizations Name Administration Dates Next Due Influenza, IIV3 (Age >=3 years) 10/04/2011 Td (Age >=7 Years) 11/14/2019 Tdap 12/27/2008 Family History Medical History Relation Name Comments Hypertension Brother 1 Sundar Psychiatric illness Brother 1 Sundar bipolar Arthritis Brother 2 Kirk knees Diabetes Brother 2 Kirk Blood Disease Daughter still in the w ork up, DVT Good Health Daughter Heart Disease Father massive MO Hypertension Father Blood Disease Maternal Uncle Two clotting dis order Other Mother COPD Other Sister Kristin muscle/tissue t umor on the L chest Psychiatric illness Sister Kristin bipolar, depression Good Health Son Cancer-breast No Family History Cancer-colon No Family History Cancer-ovarian No Family History Cancer-pancreatic No Family History Cancer-prostate No Family History Melanoma No Family History Relation Name Status Comments Brother 1 Sundar Alive Brother 2 Kirk Alive Daughter Alive Father (Age 64) heart dise ase Maternal Uncle Two Alive Mother (Age 75) COPD compl ication Sister Kristin Alive Son Alive Social History Tobacco Use Types Packs/Day Years Used Date Smoking Tobacco: Never Smokeless Tobacco: Never Tobacco Cessation:Counseling Given: Yes Alcohol Use Standard Drinks/Week Comments Not Currently 0 (1 standard drink = 0.6 oz pur e alcohol) don't like it much at all PHQ-2 Answer Date Recorded PHQ-2 TOTAL SCORE 0 05/29/2024 Social Connections Answer Date Recorded Do you often feel lonely or isolated from those around you? 0 08/06/2024 Financial Resource Strain Answer Date R ecorded Difficulty of Paying Living Expenses 3 05/29/2024 Difficulty of Paying Living Expenses Not on file 05/29/2024 Food Insecurity Answer Date Recorded Do you worry your food will run out before you are able to buy more? 1 08/06/2024 Transportation Needs Answer Date Record ed Does lack of transportation keep you from medica l appointments? 1 08/06/2024 Does lack of transportation keep you from work, meetings or getting things that you need? 1 08/06/2024 Housing Stability Answer Date Recorded What is your housing situation today? 1 08/06/2024 Interpersonal Safety Answer Date Record ed Are you being hit, kicked, p ushed or yelled at (see row info)? No 08/03/2024 Interpersonal Safety Abuse 12 - 18 Not on file 08/03/2024 Interpersonal Safety Ambulatory Vulnerability No t on file 08/03/2024 Utilities Answer Date Recorded Do you have trouble paying f or utilities (for example, heat, electricity, water, phone)? 1 08/06/2024 Comments No Sex and Gender Information Value Date Recorded Sex Assigned at Not on file Legal Sex Female 6:21 AM PROCEDURES NURSE Gender Identity Not on file Sexual Orientation Not on file Obstetrics History Para Term AB IAB SAB Ectopic Multiple Livin g Live Births 2 2 2 2 Date Outcome GA Total Labor Labor/2nd/3rd Weight Sex Type Anes PTL Alaina A1 A5 Name Clin Term M Term F Comments First one no problems. 2nd on sick whole and then on bedrest. Last Filed Vital Signs Vital Sign Reading Time Taken Comments Blood Pressure 124/80 10/17/2024 1:55 PM PROCEDURES NURSE Pulse 69 10/17/2024 1:55 PM PROCEDURES NURSE Temperature 36.8 C (98.3 F) 10/17/2024 1:55 PM PROCEDURES NURSE Respiratory Rate 18 08/06/2024 8:51 AM PROCEDURES NURSE Oxygen Saturation 96% 10/17/2024 1:55 PM PROCEDURES NURSE Inhaled Oxygen Concentration - - Weight 84.7 kg (186 lb 11.2 oz) 10/17/2024 1:55 PM PROCEDURES NURSE Height 165.1 cm (5' 5) 10/17/2024 1:55 PM PROCEDURES NURSE Body Mass Index 31.07 10/17/2024 1:55 PM PROCEDURES NURSE Plan of Treatment Upcoming Encounters Date Type Department Care Team (Late st Contact Info) Description 11/27/2024 4:15 PM PROCEDURES NURSE Telemedicine [facility] [place], [place] [phone] [place] [address] [place], [place] [id number] Health Maintenance Due Date Last Done Comments Pneumococcal series for age 50+ (1 of 2 - PCV) 1979 Zoster (shingles) series for age 50+ (1 of 2) 2010 Pap test for age 21-65 11/05/2018 6, 10/24/2012, 12/25/2008 RSV vaccine for adults or (1 - Risk 60-74 years 1-dose series) 2020 COVID-19 vaccine series ( - season) 2024 Influenza for age 50-64 06/01/2024 10/04/2011 Depression screening for age 12+ 05/29/2025 05/29/2024, 01/14/2022, 01/13/2022, Additional history exists BMI (ht and wt on same day) for age 18+ 10/17/2025 10/17/2024, 11/29/2023, 05/10/2022, Additional history exists Lipids for age 45-75 11/28/2028 11/29/2023, 08/23/2022, 07/14/2021, Additional history exists Colonoscopy through age 75 05/27/202905/27, 05/27/2019, 05/27/2019, Additional history exists Tetanus booster 11/14/2029 11/14/2019, 12/27/2008 Tdap Completed 12/27/2008 HIV for age 15-65 Completed 03/26/2018 Hepatitis C screening for ag e 18-79 Completed 08/03/2024 Procedures Procedure Name Priority Date/Time Associated Diagnosis Comments ACUTE HEPATITIS PANEL JENNIFER 08/03/2024 1:15 AM CDT LIPID PANEL Routine 11/29/2023 2:49 PM PROCEDURES NURSE Mixed hyperlipidemia COLONOSCOPY SCREENING Routine 05/27/2019 2:42 PM CDT Screening for colon cancer ANTI HIV 1/2 Routine 03/26/2018 9:57 AM CDT Other fatigue Anemia due to antineoplastic chemotherapy (CODE) Drug-induced polyneuropathy (HC) Other specified personal risk factors, not elsewhere classified BEAD FILLER THIN PREP PAP SCREEN IMAGED Routine 11/05/2015 2:35 PM PROCEDURES NURSE Cervical cancer screening from Last 3 Months or Most Recently Relevant to Health Maintenance Results * ACUTE HEPATITIS PANEL (08/03/2024 1:15 AM CDT) HEPATITIS C ANTIBODY Non-Reactive Non-Reactive 08/03/2024 3:47 AM PROCEDURES NURSE [facility] Comment:Please note, per www .CDC.gov: If a patient is known to be at high risk of HCV infection, or is symptomatic, and the physician's suspicion of HCV infection is high, HCV RNA testing is often employed and is of diagnostic value, even after an initial negative anti-HCV test result. IGM ANTI HAV Non-Reactive Non-Reactive 08/03/20 3:47 AM PROCEDURES NURSE [facility] Comment:Anti-HAV IgM non-britney ctive. Does not exclude the possibility of exposure to/or infection with HAV. Level of anti-HAV IgM may be below the cut-off in early infection. HBSAG Nonreactive Nonreactive 08/03/2024 3:47 AM PROCEDURES NURSE [facility] IGM ANTI HBC Non-Reactive Non-Reactive 08/03/20 3:47 AM PROCEDURES NURSE [facility] Comment:Anti-HBc IgM not det ected. Does not exclude the possibility of exposure to or infection with HBV. Blood BLOOD SPECIMEN / Unknown Non-Lab Venipuncture / Unknown 08/03/2024 1:15 AM CDT 08/03/2024 1:30 AM CDT Narrative [facility] - 08/03/2024 3:47 AM PROCEDURES NURSE Biotin supplements may cause clinically significant interference for this test assay. If interference is suspected, it is strongly recommended that biotin is discontinued for at least one week prior to retesting. us Torrey Cruz MD SEND OUTS Fin al Result [facility] [address] [place] [address], * (ABNORMAL) LIPID PANEL (11/29/2023 2:49 PM PROCEDURES NURSE) CHOLESTEROL,TOTAL 233(H) 100 - 199 mg/dL 11/29/2023 9:35 PM PROCEDURES NURSE [facility] Comment: Cholesterol, Total Reference Ranges Desirable <200 mg/dL Borderline 200-239 mg/dL High >=240 mg/dL TRIGLYCERIDES 101 <150 mg/dL 11/29/2023 9:35 PM PROCEDURES NURSE [facility] HDL CHOLESTEROL 64 >40 mg/dL 9:35 PM PROCEDURES NURSE [facility] NON-HDL CHOLESTEROL 169(H) <145 mg/dl 11/29/2023 9:35 PM PROCEDURES NURSE [facility] CHOL/HDL RATIO 3.64 <4.50 11/29/2023 9:35 PM PROCEDURES NURSE [facility] LDL CHOLESTEROL 149(H) <=130 mg/dL 11/29/2023 9:35 PM PROCEDURES NURSE [facility] VLDL CHOLESTEROL 20 <=30 mg/dL 11/29/2023 9:35 PM PROCEDURES NURSE [facility] PROVIDER ORDERED STATUS RANDOM 11/29/2023 9:35 PM PROCEDURES NURSE [facility] Blood BLOOD SPECIMEN / Unknown Venipuncture / Unknown 11/29/2023 2:49 PM PROCEDURES NURSE 11/29/2023 2:50 PM PROCEDURES NURSE Brooks Monzon MD CHEMISTRY Final Result Performing Organization Address City/State/[facility] Co de Phone Number [facility] [address] [place] [address], * COLONOSCOPY SCREENING (05/27/2019 2:42 PM CDT) Audra Liz MD GI PROCEDURE ORD Final R esult * ANTI HIV 1/2 (03/26/2018 9:57 AM CDT) HIV-1/HIV-2 ANTIBODY Non-Reacti ve Non-Reacti ve 03/26/2018 3:00 PM CDT [facility] Comment:HIV-1 p24 and HIV-1/ HIV-2 Ab not detected. Blood BLOOD SPECIMEN / Unknown 03/26/2018 9:57 AM CDT 03/26/2018 1:08 PM CDT Josias CHAVARRIA SEND OUTS Final Re sult [facility] [address] [place] [address], [place] * BEAD FILLER THIN PREP PAP SCREEN IMAGED (11/05/2015 2:35 PM PROCEDURES NURSE) BEAD FILLER CYTOLOGY See Anatomic Pathology case 11/10/2015 3:01 PM PROCEDURES NURSE [facility] Specimen (specimen) (Cervical) Non-Blood / Unknown 11/05/2015 2:35 PM PROCEDURES NURSE 11/05/2015 2:35 PM PROCEDURES NURSE us Audra Liz MD PATHOLOGY/CYTOLOGY Final Result [facility] 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
--- OUTSIDE RECORDS SUMMARY | 2024-11-25 17:30 | XMS_ITS | Clinical Summary ---
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 Name Role Phone Boone Poole MD Conditions or Problems Problem Name Problem Code Onset Date Status Entry Date Provider Comment Standard Description Annotate Hx of lacunar stroke 533978403 (SNOMED CT) 06/06 Active 06/06 Hue Hammond History of cerebrovascula r accident Gait imbalance 912078933 (SNOMED CT) 06/06 Active 06/06 Boone Poole MD Abnormal gait due to impairment of balance Lacunar stroke 626088691 (SNOMED CT) 06/06 Inactive 06/06 Boone Poole MD Lacunar infarction Vitamin D deficiency 61517448 (SNOMED CT) 10/11 Active 10/15 Neftali Vasquez MD Vitamin D deficiency [facility] ( 4 at 03:51:14 PM) Upper airway resistance syndrome G47.8 (ICD-10-CM ) 10/18 Active 10/15 Neftali Vasquez MD Other sleep disorders Imported from [facility]: [facility] ( 4 at 03:51:14 PM) Uncontrolle d type 2 diabetes mellitus with hyperglycem ia E11.65 (ICD-10-CM ) 01/19 Active 10/15 Neftali Vasquez MD Type 2 diabetes mellitus with hyperglycemia [facility] ( 4 at 03:51:14 PM) Stage 3b chronic kidney disease N18.32 (ICD-10-CM ) 11/28 Active 10/15 Neftali Vasquez MD Chronic kidney disease, stage 3b Imported from [facility]: [facility] ( 4 at 03:51:14 PM) Stage 3a chronic kidney disease N18.31 (ICD-10-CM ) 11/01 Active 10/15 Neftali Vasquez MD Chronic kidney disease, stage 3a Imported from [facility]: [facility] ( 4 at 03:51:14 PM) Sensorineur al hearing loss, bilateral 675827222 (SNOMED CT) 10/24 Active 10/15 Neftali Vasquez MD Sensorineural hearing loss of bilateral ears Imported from [facility]: [facility] ( 4 at 03:51:14 PM) Routine adult health maintenance Z00.00 (ICD-10-CM ) 05/27 Active 10/15 Neftali Vasquez MD Encounter for general adult medical examination without abnormal findings Imported from [facility]: [facility] ( 4 at 03:51:14 PM) Peripheral sensory neuropathy G60.8 (ICD-10-CM ) 03/11 Active 10/15 Neftali Vasquez MD Other hereditary and idiopathic neuropathies Imported from [facility]: [facility] ( 4 at 03:51:14 PM) Onychomycos is 604683169 (SNOMED CT) 10/11 Active 10/15 Neftali Vasquez MD Onychomycosis Imported from [facility]: [facility] ( 4 at 03:51:14 PM) Infiltratin g ductal carcinoma of right breast C50.911 (ICD-10-CM ) 11/18 Active 10/15 Neftali Vasquez MD Malignant neoplasm of unspecified site of right female breast Imported from [facility]: [facility] ( 4 at 03:51:14 PM) HTN (hypertensi on) I10 (ICD-10-CM ) 05/10 Active 10/15 Neftali Vasquez MD Essential (primary) hypertension Imported from [facility]: [facility] ( 4 at 03:51:14 PM) Gastritis 3497346 (SNOMED CT) 03/31 Active 10/15 Neftali Vasquez MD Gastritis Imported from [facility]: [facility] ( 4 at 03:51:14 PM) Environment al allergies Z91.09 (ICD-10-CM ) 10/11 Active 10/15 Neftali Vasquez MD Other allergy status, other than to drugs and biological substances Imported from [facility]: [facility] ( 4 at 03:51:14 PM) Controlled type 2 diabetes mellitus without complicatio n, without E11.9 (ICD-10-CM ) 11/17 Active 10/15 Neftali Vasquez MD Type 2 diabetes mellitus without complications Imported from [facility]: [facility] ( 4 at 03:51:14 PM) Chiari malformatio n unknown 02/15 Active 10/15 Neftali Vasquez MD unknown Imported from [facility]: [facility] ( 4 at 03:51:14 PM) Arnold-Vic ri malformatio n 692700073 (SNOMED CT) 01/19 Active 10/15 Neftali Vasquez MD Chiari malformation Imported from [facility]: [facility] ( 4 at 03:51:14 PM) Weakness of bilateral arms 766903166 (SNOMED CT) 11/28 Active 11/28 Mason Hernandez MD Finding of upper limb Myelopathy 92161054 (SNOMED CT) 11/28 Active 11/28 Mason Hernandez MD Spinal cord disease Eye pain 83908429 (SNOMED CT) 10/08 Active 10/08 Mason Hernandez MD Pain in eye Peripheral neuropathy, feet 702214285 (SNOMED CT) 02/13 Active 02/13 Mason Hernandez MD Neuropathy of lower limb Memory problems R41.3 (ICD-10-CM ) 02/13 Active 02/13 Mason Hernandez MD Other amnesia MRI, brain, abnormal 210650052 (SNOMED CT) 01/28 Active 01/28 Aubree Ge MD Magnetic resonance imaging of brain abnormal ventriculom egaly Chiari malformatio n Type I 874362822 (SNOMED CT) 01/28 Active 01/28 Aubree Ge MD Chiari malformation type I Medications Medication Instructions Start Date Stop Date Generic Name NDC Provider ATORVASTATIN CALCIUM 40 MG TABS Take 1 tablet by mouth once a day atorvastatin [id number] Boone Poole MD zinc 50 mg tablet Take 1 Tablet (50 mg) by mouth once daily. zinc 50 mg tablet QIEUSER QIEUSER SPIRONOLACTONE 25 MG TABS Take 1 Tablet (25 mg) by mouth every morning. spironolactone 46079654034 QIEUSER QIEUSER OneTouch Verio test strips strip USE TO TEST ONCE DAILY OneTouch Verio test strips strip QIEUSER QIEUSER OneTouch UltraSoft Lancets TEST ONCE DAILY OneTouch UltraSoft Lancets QIEUSER QIEUSER OneTouch Delica Plus Lancet 33 gauge misc TEST DAILY OneTouch Delica Plus Lancet 33 gauge misc QIEUSER QIEUSER multivitamin chew Chew by mouth once daily. multivitamin chew QIEUSER QIEUSER METHYLPHENIDATE HCL ER 20 MG CR-TABS Take 1 Tablet (20 mg) by mouth once daily. methylphenidate hcl 73626607376 QIEUSER QIEUSER METFORMIN HCL 500 MG TABS Take 1 Tablet (500 mg) by mouth two times daily with meals. metformin 28152089686 QIEUSER QIEUSER medication order composer CPAP full mask; small. CPAP tubing. headgear medication order composer QIEUSER QIEUSER loratadine-pseudo ephedrine, 10-240 mg, 24 hr (CLARITIN-D 24 Take 1 tablet by mouth once daily. CLARITIN-D 24 QIEUSER QIEUSER LANTUS SOLOSTAR 100 UNIT/ML SOPN Inject 18 units subcutaneous before bedtime. Product desired: LANTUS SOLOSTAR insulin glargine 71163117454 QIEUSER QIEUSER Insulin Divide, Disposable, (bd insulin pen needle uf mini) USE TO INJECT INSULIN SUBCUTANEOUSLY DIRECTED bd insulin pen needle uf mini QIEUSER QIEUSER FLUTICASONE PROPIONATE 50 MCG/ACT SUSP SHAKE LIQUID AND USE 1 SPRAY IN EACH NOSTRIL TWICE DAILY fluticasone propionate 90899738598 QIEUSER QIEUSER FAMOTIDINE 20 MG TABS TAKE 1 TABLET(20 MG) BY MOUTH IN THE MORNING AND IN THE EVENING famotidine 84522172893 QIEUSER QIEUSER empagliflozin (Jardiance) 10 mg tablet Take 1 Tablet (10 mg) by mouth once daily. Jardiance QIEUSER QIEUSER AMPHETAMINE-DEXTR OAMPHETAMINE 10 MG TABS Take 1 Tablet (10 mg) by mouth 2 times daily at 7 AM and Noon. dextroamphetamine -amphetamine 34751753849 QIEUSER QIEUSER AMPHETAMINE-DEXTR OAMPHETAMINE 10 MG TABS Take 1 Tablet (10 mg) by mouth once daily. dextroamphetamine -amphetamine 23608699489 QIEUSER QIEUSER AMPHETAMINE-DEXTR OAMPHETAMINE 10 MG TABS Take 1 Tablet (10 mg) by mouth two times daily. dextroamphetamine -amphetamine 80748339719 QIEUSER QIEUSER RA VITAMIN B-12 100 MCG TABS Take 1 tablet by mouth once daily. cyanocobalamin (vitamin b-12) 97788394553 QIEUSER QIEUSER CPAP CPAP machine for home use at pressure same as prior machine, full face mask x1/3month with a full face cushion x1/mo CPAP QIEUSER QIEUSER VITAMIN D3 25 MCG (1000 UT) CAPS Take 1 capsule by mouth once daily. cholecalciferol (vitamin d3) 08877451269 QIEUSER QIEUSER blood-glucose meter Dispense meter covered by pt ins. E11.9 NIDDM type II - Test 1 time/day blood-glucose meter QIEUSER QIEUSER Blood-Glucose Meter (ONETOUCH VERIO METER) Dispense glucose meter, test strips and lancets covered by the patient insurance. Test 1 times per day. ONETOUCH VERIO METER QIEUSER QIEUSER VITAMIN C 500 MG CAPS Take by mouth. ascorbic acid (vitamin c) 66736990736 QIEUSER QIEUSER AMLODIPINE BESYLATE 10 MG TABS Take 1 Tablet (10 mg) by mouth once daily. amlodipine 17227017816 QIEUSER QIEUSER MODAFINIL 200 MG TABS Take 1 Tablet (200 mg) by mouth every morning. modafinil 94808972220 QIEUSER QIEUSER GABAPENTIN 400 MG CAPS Take 1 Capsule (400 mg) by mouth. Five times daily gabapentin 26748727640 QIEUSER QIEUSER DULOXETINE HCL 30 MG CPEP TAKE 3 CAPSULES BY MOUTH EVERY EVENING duloxetine 51416128997 QIEUSER QIEUSER MODAFINIL 200 MG TABS Take 2 tablet by mouth every morning as needed modafinil 67813123563 Neftali Vasquez MD GABAPENTIN 400 MG CAPS Take 1 capsule by mouth six times a day 04/06 gabapentin 95415560463 Kevin Burton PA-C GABAPENTIN 400 MG CAPS TAKE 1 CAPSULE BY MOUTH 6 TIMES A DAY gabapentin 55538426157 Neftali Vasquez MD MODAFINIL 200 MG TABS 2 tablet by mouth every morning as needed 10/06 modafinil 50173935287 Kevin Burton PA-C GABAPENTIN 400 MG CAPS Take 1 capsule by mouth six times a day 04/06 gabapentin 45962276313 Kevin Burton PA-C TAMOXIFEN CITRATE 20 MG TABS 1 once a day tamoxifen 35082010559 Mason Hernandez MD DULOXETINE HCL 30 MG CPEP Take 3 capsule by mouth every night duloxetine 14835566486 Mason Hernandez MD ATIVAN 0.5 MG TABS 1 tablet by mouth as needed lorazepam 43975642344 Mason Hernandez MD OMEPRAZOLE 20 MG TBEC tablet by mouth omeprazole 90451547411 Mason Hernandez MD ESCITALOPRAM OXALATE 10 MG TABS 1 once a day escitalopram oxalate 38209533115 Mason Hernandez MD MODAFINIL 200 MG TABS 1 once a day as needed 10/30 modafinil 25578736588 Mason Hernandez MD ADDERALL 10 MG TABS 1 pill twice daily dextroamphetamine -amphetamine 25077651978 Mason Hernandez MD MODAFINIL 200 MG TABS 2 tablet by mouth every morning as needed 03/21 modafinil 55015088087 Mason Hernandez MD DULOXETINE HCL 30 MG CPEP TAKE 3 CAPSULES BY MOUTH EVERY EVENING 10/30 duloxetine 93510395048 Mason Hernandez MD GABAPENTIN 400 MG CAPS Take 1 capsule by mouth six times a day 01/08 gabapentin 22138277946 Mason Hernandez MD GABAPENTIN 400 MG CAPS TAKE 1 CAPSULE BY MOUTH FOUR TIMES DAILY 06/20 gabapentin 03649266750 Keiry Portillo PA-C GABAPENTIN 400 MG CAPS Take 1 capsule by mouth five times a day 01/13 gabapentin 51762087118 Mason Hernandez MD DULOXETINE HCL 30 MG CPEP TAKE 3 CAPSULES BY MOUTH EVERY EVENING 02/10 DULOXETINE HCL 46809212641 Mason Hernandez MD GABAPENTIN 400 MG CAPS TAKE 1 CAPSULE BY MOUTH FOUR TIMES DAILY 15 GABAPENTIN 24924500157 Mason Hernandez MD CYMBALTA 30 MG CPEP take 3 pills in PM 02/03 DULOXETINE HCL 85545344162 Mason Hernandez MD CYMBALTA 60 MG CPEP 1 pill daily 02/06 DULOXETINE HCL 63415534140 Mason Hernandez MD GABAPENTIN 100 MG CAPS TAKE 4 CAPSULES BY MOUTH TWICE DAILY 02/06 GABAPENTIN 42460232756 Mason Hernandez MD GABAPENTIN 400 MG CAPS 1 po TID 01/13 GABAPENTIN 35557610497 Mason Hernandez MD GABAPENTIN 100 MG CAPS TAKE 4 CAPSULES BY MOUTH TWICE DAILY 01/13 GABAPENTIN 95818175859 Mason Hernandez MD ESCITALOPRAM OXALATE 10 MG TABS 1 daily 10/30 ESCITALOPRAM OXALATE 59707277394 Mason Hernandez MD ADDERALL 10 MG TABS 1 pill twice daily 10/30 AMPHETAMINE-DEXTR OAMPHETAMINE 83805040209 Mason Hernandez MD CITALOPRAM HYDROBROMIDE 20 MG TABS 1 daily 06/16 CITALOPRAM HYDROBROMIDE 22302816433 Mason Hernandez MD GABAPENTIN 100 MG CAPS 2 pills twice daily 01/13 GABAPENTIN 72844534518 Mason Hernandez MD NORTRIPTYLINE HCL 10 MG CAPS Week #1 take 1 in PM. Week #2 take 2 in PM. Week #3 and on take 3 in PM. 06/16 NORTRIPTYLINE HCL 21981425058 Mason Hernandez MD MODAFINIL 200 MG TABS 1 pill daily as needed 10/30 MODAFINIL 98244377402 Mason Hernandez MD MODAFINIL TABS 06/16 MODAFINIL TABS 04357746426 Mason Hernandez MD CONCERTA 18 MG CR-TABS 1 pill daily 06/16 METHYLPHENIDATE HCL 23400243984 Mason Hernandez MD CYMBALTA 60 MG CPEP 1 pill daily 02/06 DULOXETINE HCL 58819059355 Mason Hernandez MD CYMBALTA 30 MG CPEP Week #1 and #2 take 1 pill daily. Week #3 and on take 2 pills daily. 06/16 DULOXETINE HCL 80215709515 Mason Hernandez MD CYMBALTA 30 MG CPEP Week #1 and #2 take 1 pill daily. Week #3 and on take 2 pills daily. 06/16 DULOXETINE HCL 30657566309 Mason Hernandez MD MODAFINIL 200 MG TABS 1 pill daily 06/16 MODAFINIL 49824014214 Mason Hernandez MD NORTRIPTYLINE HCL 10 MG CAPS Week #1 take 1 in PM. Week #2 take 2 in PM. Week #3 and on take 3 in PM. 06/16 NORTRIPTYLINE HCL 64399605700 Mason Hernandez MD GABAPENTIN 100 MG CAPS 4 pills twice daily 01/13 GABAPENTIN 56039603070 Mason Hernandez MD GABAPENTIN 100 MG CAPS 1 tid 10/12 GABAPENTIN 72215758109 Mason Hernandez MD CONCERTA 18 MG CR-TABS 1 pill daily 06/16 METHYLPHENIDATE HCL 85711618023 Mason Hernandez MD ADDERALL XR 10 MG [id number] 1 pill bid 05/10 AMPHETAMINE-DEXTR OAMPHETAMINE 97183066569 Mason Hernandez MD GABAPENTIN 100 MG CAPS 1 tid 01/13 GABAPENTIN 82444361781 Mira Kingsley RN CYMBALTA 30 MG CPEP Week #1 and #2 take 1 in PM, then Week #3 and on take 2 in PM 02/27 DULOXETINE HCL 72616915514 Mira Kingsley RN CYMBALTA 30 MG CPEP Week #1 and #2 take 1 in PM, then Week #3 and on take 2 in PM 02/27 DULOXETINE HCL 47284605019 Mason Hernandez MD CITALOPRAM HYDROBROMIDE 20 MG TABS 1 daily 10/13 CITALOPRAM HYDROBROMIDE 42520287731 Mason Hernandez MD ATIVAN 0.5 MG TABS 1 as needed for anxiety 10/30 LORAZEPAM 44954231060 Mason Hernandez MD OMEPRAZOLE TBEC 10/30 OMEPRAZOLE TBEC 12619604166 Mason Hernandez MD MODAFINIL TABS 06/16 MODAFINIL TABS 76057697716 Mason Hernandez MD ADDERALL XR 10 MG [id number] 1 pill bid 02/13 AMPHETAMINE-DEXTR OAMPHETAMINE 44535579065 Mason Hernandez MD TAMOXIFEN CITRATE 20 MG TABS 1 daily 10/30 TAMOXIFEN CITRATE 97730218192 Mason Hernandez MD PREMARIN 1.25 MG TABS TK 1 T PO ONCE D 02/13 ESTROGENS CONJUGATED 26173433955 Mason Hernandez MD FLUTICASONE PROPIONATE 50 MCG/ACT SUSP SPRAY 1 SPRAY IEN BID 02/13 FLUTICASONE PROPIONATE 63893904927 Mason Hernandez MD CLARITIN TABS 02/13 LORATADINE TABS 62986756398 Mason Hernandez MD CLARITIN TABS 02/13 LORATADINE TABS 31298255820 Aubree Ge MD FLUTICASONE PROPIONATE 50 MCG/ACT SUSP SPRAY 1 SPRAY IEN BID 01/13 FLUTICASONE PROPIONATE 31982350387 Aubree Ge MD PREMARIN 1.25 MG TABS TK 1 T PO ONCE D 01/13 ESTROGENS CONJUGATED 73461625421 Aurbee Ge MD Medications Administered No information available. Allergies, Adverse Reactions, Alerts Allergy Name Reaction Description Start Date Severity Statu s Provider PENICILLINS Rash Moderate Active Neftali Vasquez MD LOSARTAN Behavioral Disturbances Moderate Activ e Neftali Vasquez MD LISINOPRIL Cough Moderate Active Neftali bernard MD DOXYCYCLINE Hives Moderate Active Neftali Vasquez MD CYMBALTA dry mouth, brain fog , affected mood Moderate Active Mira Kingsley RN PENICILLIN Critical Active Mason Hernandez MD DOXICYCLINE Critical Active Mason Hernandez MD MORPHINE Critical Active Mason Hernandez MD Results Date Name Value Unit Range Flag Description Replaced Document: (P) COMPR EHENSIVE METABOLIC PANEL, CBC (INCLUDES DIFF/PLT), ... COPPER SER * ug/mL copper, bl ood HGBA1C 6.0 % OF TOTAL HGB % <5.7 H Hemoglobin A1c/Hemoglobin, total in Blood - % HCV VIRUS AB * Hepatiti s C virus 5-1-1 Ab [Presence] in Serum by Immunoblot SSB * Sjogren's syndrome-B, extractable nuclear Ab, serum SSA * Sjogren's syndrome-A, extractable nuclear Ab, serum INTRP * Interpretatio n ANASCR IFA * NICHO SCREEN , IFA LYME DIS AB * Borrelia burgdorferi.VlsE1+p epC10 Ab [Units/volume] in Serum by Immunoassay TTG * U/mL TTG (tissue transglutaminase antibody) COMMENT#1 * COMMENT #1 AUTONUC RBC * /100{WBC } Nucleated RBC BLAST % * % blasts as per cent of blood leukocytes REACT LYMPH% * % reactive lymphocytes, blood, as percent of total leukocytes PROMYELO % * % promyelocy annabel as percent of blood leukocytes MYELOCYTE % * % myelocyte s as percent of blood leukocytes METAMYELO % * % metamyelo cytes as percent of blood leukocytes BANDS CT * 10*3/mm3 neutrophil count, band form, blood NUCLEATRBCAB * ABSOLUTE NUCLEATED RBC BLASTS * blast count, blood PROMYELO CT * 10*3/mm3 promyelo cyte count, blood MYELOCYTES * 10*3/mm3 Myelocyte s [#/volume] in Blood by Manual count METAMYELO CT * 10*3/mm3 metamye locyte count, blood ABS BANDS * {Cells}/ uL Absolute Band Neutrophil count NEUT CT MANU * 10*3/mm3 neutrop hil count, blood, manual METHYL MALON * nmol/L methylma lonic acid (MMA), serum Replaced Document: (P) PARAN EOPLASTIC AB EVAL W/REFL TITER/LB, BASIC, STRIATED ... VIT B1 PLSM * ug/L Vitamin B 1 (thiamine), plasma ACETCHBND AB * acetylch oline binding antibody Office Visit: 08/12/18 14 :52- 08/12/18 14:52 REFERRING PHYSICIAN NAME: ... BALBIR Patient screened for falls, fall risk Fall risk assessment Replaced Document: (P) PARAN EOPLASTIC AB EVAL W/REFL TITER/LB, BASIC, STRIATED ... TSH * u[iU]/mL Thyrotropin [Units/volume] in Serum or Plasma BASOPHIL % 0.7 % N Basophils/ 100 leukocytes in Blood by Manual count EOSINOPHIL % 1.8 % N Eosinoph ils/100 leukocytes in Blood by Manual count MONOCYTE % 7.7 % N Monocytes/ 100 leukocytes in Blood by Automated count LYMPHS % 26.9 % N Lymphocytes/ 100 leukocytes in Blood by Automated count PMN % 62.9 % N Neutrophils/1 00 leukocytes in Blood by Automated count BASOPH COUNT 43 CELLS/UL 10*3/mm3 0-200 N Bas ophils [#/volume] in Blood by Manual count EOS COUNT 110 CELLS/UL 10*3/mm3 15-500 N eosin ophil count, blood MONOSCT AUTO 470 CELLS/UL 10*3/uL 200-950 N Mon ocytes [#/volume] in Blood by Automated count LYMPH COUNT 1641 CELLS/UL 10*3/mm3 850-3900 N l ymphocyte count, blood NEUTRO COUNT 3837 CELLS/UL 10*3/mm3 6353-6979 N neutrophil count, blood MPV 11.0 fL 7.5-12.5 N Platelet omar n volume [Entitic volume] in Blood by Lisbeth PLATELETS 230 THOUSAND/UL 10*3/mm3 140-400 N Platelets [#/volume] in Blood by Automated count RDW 12.7 % 11.0-15.0 N Erythrocyte distribution width [Ratio] by Automated count MCHC 32.6 G/DL 32.0-36.0 N MCHC [Mass/ volume] by Automated count MCH 29.0 pg 27.0-33.0 N MCH [Entiti c mass] by Automated count HCT 44.2 % 35.0-45.0 N Hematocrit [Volume Fraction] of Blood by Automated count RBC 4.97 MILLION/UL 10*6/mm3 3.80-5.10 N Erythrocytes [#/volume] in Blood by Automated count WBC 6.1 THOUSAND/UL 10*3/mm3 3.8-10.8 N Leukocytes [#/volume] in Blood by Automated count SGPT (ALT) * U/L Alanine aminotransferase [Enzymatic activity/volume] in Serum or Plasma SGOT (AST) * U/L Aspartate aminotransferase [Enzymatic activity/volume] in Serum or Plasma ALK PHOS * U/L Alkaline phosphatase [Enzymatic activity/volume] in Blood BILI TOTAL * mg/dL Bilirubin. total [Mass/volume] in Serum or Plasma A/G RATIO * Albumin/Ana bulin [Mass Ratio] in Serum or Plasma GLOBULIN TOT * g/dL Globulin [Mass/volume] in Serum ALBUMIN * g/dL Albumin [Mass/volume] in Serum or Plasma PROTEIN, TOT * g/dL Protein [Mass/volume] in Serum or Plasma CALCIUM * mg/dL Calcium [Moles/volume] in Serum or Plasma CO2 TOTAL * mmol/L carbon diox sridevi, serum, total EGFR IF AFA * mL/min/1 .73m2 Glomerular filtration rate/1.73 sq M.predicted among blacks [Volume Rate/Area] in Serum, Plasma or Blood by Creatinine-based formula (MDRD) EGFR NOT AFA * mL/min/1 .73m2 Glomerular filtration rate/1.73 sq M.predicted among non-blacks [Volume Rate/Area] in Serum, Plasma or Blood by Creatinine-based formula (MDRD) ACETCHO R AB * nmol/L anti-pradip tylcholine receptor antibody VOLTGATEDCC * Voltage G ated Calcium Channel Antibodies STRIA MUS AB * striated muscle antibody Office Visit: Office Visit f ax SMOK STATUS never smoker 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 smoking 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 CA 9.7 mg/dL Calcium [Mass/volume] in Serum or Plasma ABSOLUTE BAS completed 10*3/uL Basoph ils [#/volume] in Blood PTHBIOINTACT 40.2 pg/mL Parathor jada (parathyroid hormone), bio-intact GLUCOSE SER 164 mg/dL Glucose [Mass/volume] in Serum or Plasma BUN/CREAT 17 Urea nitrogen/Creatinine [Mass Ratio] in Serum or Plasma CREATININE U 62.0 mL/min Creatini ne [Mass/volume] in Urine MCV 86 fL MCV [Entitic volume] by Automated count ANION GAP 10 Anion gap 4 in Serum or Plasma SODIUM 140 mmol/L Sodium [Moles/volume] in Serum or Plasma HGB 14.5 g/dL Hemoglobin [Mass/volume] in Blood POTASSIUM 5.2 mmol/L Potassium [Moles/volume] in Serum or Plasma CHLORIDE 103 mmol/L Chloride [Moles/volume] in Serum or Plasma BUN 26 mg/dL Urea nitrogen [Mass/volume] in Serum or Plasma Office Visit: Office Visit T OC due to location Pt sched fax MEDS REVIEW Done Documenta tion of current medications (procedure) Internal Other: Verbal Autho rization/Emergency Contact - OBS VERBAL_EMER Done Verbal authorization and emergency contact Internal Other: Authorizatio n - OBS [email or web address] Yes Authoriza tion: Release of Information - Authorize [facility] - Payment and Healthcare Operations ROIAUTHOTHER Yes Authoriz ation: Release of Information - Authorize Others/Insurance - Payment and Healthcare Operations HIECONSENT Yes Consent To Release information to the Health Information Exchange (HIE) [email or web address] Yes Authorizat ion: Authorization for [facility] to leave messages, voicemail, send text messages, send emails AUTHRELHCARE Yes Authoriz ation: Release/Retrieval of Information to/from Healthcare Facilities, Pharmacy Benefit Payers and Providers AUTHPRIVPRAC Yes Authoriz ation: Notice of privacy practices AUTHBENEFIT Yes Authoriza tion: Assignment of Benefits and Payment Agreement Replaced Document: (P) LIPID PANEL WITH RATIOS, CREATININE, VITAMIN B12, VITAMI ... VIT B6 * VITAMIN B6, P LASMA B-12 1431 pg/mL 200-1100 H Cobalamin (V itamin B12) [Mass/volume] in Serum or Plasma [id number] * GE use only - for [employer] import when terms are not otherwise specified CREATININE * mg/dL Creatinine [Mass/volume] in Serum or Plasma C-LDL/C-HDL * LDL/HDL r atio, serum CHOL/HDL * cholesterol/ HDL ratio, serum LDL * mg/dL Cholesterol i n LDL [Mass/volume] in Serum or Plasma - mg/dL TRIGLYCRDES * mg/dL Triglycer sridevi [Mass/volume] in Serum or Plasma - mg/dL HDL * mg/dL Cholesterol i n HDL [Mass/volume] in Serum or Plasma - mg/dL NON-HDL CHOL * mg/dL choleste rol, non-HDL, total Plan of Care Type Date Detail Appointment 01:00 PM Michelle Flores PA-C, [address], [address], [place], [address], Pending order Follow up ESTER Pending order Follow up ESTER Pending order Physical Therapy Pending Order exclud ed from report: Pending order Physical Therapy Pending order MRI-Brain W/O Pending order MRA-Head W/O Pending order MRA-Neck W/WO Pending order Lipid Panel with LDL/HDL Ratio - fasting after midnight Pending order Vitamin B6 (Pyri doxine) - fasting after midnight Pending order Vitamin B12 Pending order Vitamin B6 (Pyri doxine) - fasting after midnight Pending Order exclud ed from report: Pending order Creatinine Serum Pending order Creatinine Serum Pending Order exclud ed from report: Pending order Patient Instruct ions Pending order Follow up with N eurologist or ESTER Pending order Follow up with N eurologist or ESTER Pending order MRI-Cervical W/O Pending order ESR (Sedimentati on Rate) Pending order Follow up in cli al or telemedicine Pending order Folate (Folic Ac id) Serum Pending order Immunofixation S chance Pending order TSH Pending order Vitamin B1 (Thia mine) Pending order Vitamin B12 Pending order MRI-Brain W/WO Pending order Telemedicine Fol low up Pending order Telemedicine Fol low up Pending order CBC with Diff/Pl atelet Pending order Comp Metabolic P shahram (14) Pending order TSH Pending order Vitamin B1 (Thia mine) Pending order Vitamin B12 Pending order Vitamin D 25 Hyd tessa Pending order Telemedicine Fol low up Pending order Follow up Pending order Consult Pending order Telemedicine Fol low up Pending order CBC with Diff/Pl atelet Pending order Comp Metabolic P shahram (14) Pending order Paraneoplastic A b - [facility] Pending order TSH Pending order Vitamin B12 Pending order Follow up Pending order Follow up Pending order Basic Metabolic Panel (8) Pending order Basic Metabolic Panel (8) Pending Order exclud ed from report: Pending order Basic Metabolic Panel (8) Pending order Follow up Pending order Follow up Pending order Follow up Pending order Consult Pending order Consult Pending order Neuropsych Testi ng Pending order EMG other Pending order MRI-Brain W/WO Pending order NICHO Pending order Copper Pending order Hemoglobin A1C Pending order Hepatitis C Ab ( HCV) Pending order Immunofixation S chance Pending order Lyme Total Ab w/ Reflex (reflex to Western Blot) Pending order Paraneoplastic A b - [facility] Pending order Sjogren's Ab - S SA/SSB (ANTI-Ro/ANTI-La) Pending order t-Transglutamina se (tTG) IgA Pending order TSH Pending order Vitamin B1 (Thia mine) Pending order Vitamin B12 Pending order Vitamin B6 (Pyri doxine) Pending order CBC with Diff/Pl atelet Pending order Comp Metabolic P shahram (14) Procedures Code Procedure Name Date Entry Date ORDERS Physical Therapy [id number] MRA-Neck W/WO [id number] MRI-Brain W/O [id number] MRA-Head W/O CPT-01542 MRI Brain W/O CPT-52553 MRA Head W/O CPT-64380 MRA Neck W/O ORDERS Creatinine Serum ORDERS Vitamin B12 ORDERS Vitamin B6 (Pyridoxine) - fasting after m idnight ORDERS Lipid Panel with LDL /HDL Ratio - fasting after midnight [id number] Documentation of current medicatio ns ORDERS Patient Instructions [id number] MRI-Cervical W/O CPT-66060 Nerve Conduction 9-10 studies CPT-54861 EMG with NCS (5+ muscles) - 1 limb 11/28 ORDERS ESR (Sedimentation Rate) 202 11/11/07 ORDERS Follow up in clinic or telemedicine 03/01 ORDERS Folate (Folic Acid) Serum 20 22/03/01 ORDERS Immunofixation Serum ORDERS TSH ORDERS Vitamin B1 (Thiamine) 03/01 ORDERS Vitamin B12 ORDERS Telemedicine Follow up 06/20 [id number] MRI-Brain W/WO ORDERS Telemedicine Follow up 03/15 ORDERS Telemedicine Follow up 10/22 ORDERS CBC with Diff/Platelet 03/15 ORDERS Comp Metabolic Panel (14) 20 21/03/15 ORDERS TSH ORDERS Vitamin B1 (Thiamine) 03/15 ORDERS Vitamin B12 ORDERS Vitamin D 25 Hydroxy ORDERS Follow up [id number] Consult ORDERS Telemedicine Follow up 06/14 ORDERS CBC with Diff/Platelet 02/06 ORDERS TSH ORDERS Comp Metabolic Panel (14) 17/02/09 ORDERS Vitamin B12 ORDERS Paraneoplastic Ab - [facility] 20 17/02/09 ORDERS Follow up [id number] Documentation of current medicatio ns [id number] Fall risk assessment (procedure) ORDERS Follow up [id number] Documentation of current medicatio ns ORDERS Follow up ORDERS Basic Metabolic Panel (8) 20 17/12/08 [id number] Consult ORDERS Basic Metabolic Panel (8) 20 19/11/17 ORDERS Follow up [id number] Documentation of current medicatio ns ORDERS Follow up [id number] Consult ORDERS Neuropsych Testing 6 ORDERS EMG other CPT-65895 Nerve Conduction 5-6 studies CPT-78455 EMG with NCS (5+ muscles) - 1 limb 03/08 [id number] MRI-Brain W/WO [id number] Documentation of current medicatio ns ORDERS Hemoglobin A1C ORDERS TSH ORDERS CBC with Diff/Platelet 02/13 ORDERS Comp Metabolic Panel (14) 20 16/02/16 ORDERS Hepatitis C Ab (HCV) ORDERS Lyme Total Ab w/Refl ex (reflex to Western Blot) ORDERS NICHO ORDERS Copper ORDERS t-Transglutaminase (tTG) IgA ORDERS Vitamin B12 ORDERS Immunofixation Serum ORDERS Sjogren's Ab - SSA/SSB (ANTI-Ro/ANTI-La) ORDERS Vitamin B6 (Pyridoxine) 2017 ORDERS Vitamin B1 (Thiamine) 2018/0 02/13 ORDERS Paraneoplastic Ab - [facility] 20 16/02/16 Vital Signs Date Name Value Unit Description BP Diastolic 90 mm[Hg] blood pressu re, diastolic BP Systolic 164 mm[Hg] blood pressur e, systolic Heart Rate 90 /min pulse rate Height 65 [in_us] height E&M BMI (Body Mass Index) 32.23 kg/m2 Bod y Mass Index (Ratio) Respiratory Rate 11 /min respirat ory rate E&M Weight Measured 193 [lb_av] weight E& M Weight Measured 87.73 kg weight in kilograms E&M Immunizations No information available. Advance Directives No information available.
[2024-11-25 17:32] LABS: Chloride* 96 mmol/L (96-114); Potassium* 4.5 mmol/L (3.6-5.1); Sodium* 129 mmol/L (135-149)
[2024-11-25 17:35] LABS: Anion Gap 14 mEq/L (7-15); Blood Urea Nitrogen* 65 mg/dL (7-30); Carbon Dioxide* 19 mmol/L (20-32); Creatinine* 1.5 mg/dL (0.5-1.5); Est. Creatinine Clearance* 34.09; Estimated Glomerular Filt Rate 39 ml/min
[2024-11-25 17:36] LABS: Calcium* 8.8 mg/dL (8.4-10.6)
[2024-11-25] MEDS: 0.9 % SODIUM CHLORIDE 1000 ml 1,000 ML IV ×2 (17:40→18:49)
[2024-11-25 17:45] LABS: Appearance Urine Clear (Clear); Bilirubin Urine Negative (Negative); Blood Urine Negative (Negative); Color Urine Yellow (Yellow); Glucose Urine 2+ (Negative); Ketones Urine Negative (Negative); Leukocyte Esterase Urine Negative (Negative); Nitrite Urine Negative (Negative); Protein Urine Negative (Negative); Urobilinogen Urine 0.2 (0.2-1.0)
[2024-11-25 17:47] LABS: HCO3 VBG 22 mmol/L (21-28); Lactate* 3.3 mmol/L (0.5-1.9); PCO2 VBG 37 mmHG (40-50); PO2 VBG 42.3 mmHG (25-47); Slide Review Reflex No; pH VBG 7.391 (7.32-7.43)
[2024-11-25 17:49] LABS: Glucose* 618 mg/dL (60-115)
[2024-11-25 17:56] LABS: Bacteria Urine Few; RBC Urine 0-2 (0-2); Squamous Epithelial Cell Urine Few (None-Few); WBC Urine 0-2 (0-5)
[2024-11-25] MEDS: INSULIN REGULAR, HUMAN 100 UNIT/ML VIAL 12 UNIT IVP (18:00)
[2024-11-25 19:09] LABS: Glucose, Point-of-Care* 235 mg/dl (60-115)
[2024-11-25 19:47] LABS: Glucose, Point-of-Care* 180 mg/dl (60-115)
== END 2024-11-25 19:57 | disposition home or self-care (01) ==
PROVIDERS: Emergency Provider Family Medicine; PCP Family Medicine
DX: E11.65 Type 2 diabetes mellitus with hyperglycemia (principal); E86.0 Dehydration; R82.90 Unspecified abnormal findings in urine
CPT/HCPCS: 36415; 80048; 81001; 82803; 82947; 83605; 85025; 87086; 99284; J7030